=== PATIENT | female | born 1935 | race Caucasian/White ===

== ENCOUNTER 2017-05-12 08:36 | Outpatient (CLI) | payer MEDICARE, BC ==
[2016-05-10 21:27] VITALS: O2SAT 98
== END 2017-05-12 08:37 | disposition home or self-care (01) | DRG 554 ==
LOC: CONVCARE 08:36
PROVIDERS: ATTEND Orthopaedic Surgery
DX: M17.11 Unilateral primary osteoarthritis, right knee (principal)
CPT/HCPCS: 73560

== ENCOUNTER 2019-02-05 11:50 | Outpatient (CLI) | payer MEDICARE, OTHER | END 2019-02-05 11:51 | disposition home or self-care (01) | LOC: CONVCARE 11:50 ==